=== PATIENT | male | born 1945 | race Caucasian/White ===

== ENCOUNTER 2020-07-21 16:01 | Emergency (ER) | payer OTHER, MEDICARE ==
--- NOTE | 2020-07-21 16:35 | EDM.PDOC ---
ED HPI GENERAL MEDICAL PROBLEM - General Chief Complaint: Lower Extremity Injury/Pain Stated Complaint: KNEE PAIN Time Seen by Provider: 07/21/20 16:25 Source of Information: Reports: Patient, RN, RN Notes Reviewed History Limitations: Reports: No Limitations - History of Present Illness INITIAL COMMENTS - FREE TEXT/NARRATIVE: Nik is a 75 y/o male who presents to the ED via personal vehicle for complaints of left knee pain. The patient reports he has experienced pain to this extremity for approximately two months. He has been [facility] and finished a 15-day PT treatment about two weeks ago. He noticed an increase to the pain in his left anteromedial knee a few days after finishing PT which has progressively worsened over the past two days. The patient denies history or recent injury to this extremity, but does note he was lifting and hauling 60lbs bags of dirt at work about three days ago. He reports the pain is the worst when he is completely bearing weight on this extremity while he is walking. - Related Data Allergies Allergy/AdvReac Type Severity Reaction Status Date / Time No Known Allergies Allergy Verified 07/21/20 16:18 Home Meds: Home Meds . [No Known Home Meds] 07/21/20 [History] Past Medical History Respiratory History: Reports: Asthma Social & Family History - Family History Family Medical History: No Pertinent Family History - Tobacco Use Tobacco Use Status *Q: Never Tobacco User - Caffeine Use Caffeine Use: Reports: Coffee - Recreational Drug Use Recreational Drug Use: No Review of Systems - Review of Systems Review Of Systems: Comprehensive ROS is negative, except as noted in HPI. ED EXAM, GENERAL - Physical Exam Exam: See Below Exam Limited By: No Limitations General Appearance: Alert, No Apparent Distress Throat/Mouth: Normal Inspection, Normal Oropharynx, Normal Voice, No Airway Compromise Head: Atraumatic, Normocephalic Respiratory/Chest: No Respiratory Distress, Lungs Clear, Normal Breath Sounds, No Accessory Muscle Use, Chest Non-Tender Cardiovascular: Normal Peripheral Pulses, Regular Rate, Rhythm, No Edema, No Gallop, No JVD, No Murmur, No Rub Peripheral Pulses: 1+: Posterior Tibial (L), Posterior Tibial (R), 2+: Radial (L), Radial (R), Dorsalis Pedis (L), Dorsalis Pedis (R) GI/Abdominal: Normal Bowel Sounds, Soft, Non-Tender, No Distention, No Mass, Pelvis Stable (Male) Exam: Deferred Rectal (Males) Exam: Deferred Back Exam: Normal Inspection, Full Range of Motion Extremities: No Pedal Edema, Normal Capillary Refill, Leg Pain, Limited Range of Motion (To bilateral knees), Other (Compression brace in place to right knee). No: Joint Swelling, Increased Warmth, Mottled, Pallor, Redness Neurological: Alert, Oriented, CN II-XII Intact, Normal Cognition, Normal Gait, No Motor/Sensory Deficits Psychiatric: Normal Affect, Normal Mood Skin Exam: Warm, Dry, Intact, Normal Color, No Rash. No: Ecchymosis, Erythema, Jaundice, Mottled, Pallor, Petechiae Course - Vital Signs Last Recorded V/S: Last Vital Signs Temp 98.5 F 07/21/20 16:23 Pulse 84 07/21/20 16:23 Resp 16 07/21/20 16:23 BP 133/84 07/21/20 16:23 Pulse Ox 100 07/21/20 16:23 - Orders/Labs/Meds Meds: Medications Discontinued Medications Generic Name Dose Route Start Last Admin Trade Name Freq PRN Reason Stop Dose Admin Tramadol HCl 50 mg 07/21/20 16:40 07/21/20 16:50 Tramadol 50 Mg Tab PO 07/21/20 16:41 50 mg ONETIME ONE Administration - Re-Assessments/Exams Free Text/Narrative Re-Assessment/Exam: 07/21/20 Given longstanding history of knee pain with no injury, will refrain from imaging at this time. Drawer test negative. Vargus stress negative, valgus stress produces painful response. Discussed likely need for outpatient MRI for evaluation of ligaments. Patient reports he has compression sleeve fore this knee at home. Reviewed supportive cares for knee pain at home. Will treat acute pain with tramadol. Patient to follow up with primary care provider tomorrow morning to set up MRI and appropriate referrals. Patient verbalized understanding and agreement with the plan of care. Departure - Departure Time of Disposition: 16:43 Disposition: Home, Self-Care 01 Condition: Good Clinical Impression: Left medial knee pain, Chronic pain of left knee - Discharge Information *PRESCRIPTION DRUG MONITORING PROGRAM REVIEWED*: Not Applicable *COPY OF PRESCRIPTION DRUG MONITORING REPORT IN PATIENT IRASEMA: Not Applicable Referrals: PCP,None [Primary Care Provider] - Forms: ED Department Discharge Additional Instructions: Rx: tramadol 1.) Follow up with your primary care provider tomorrow to schedule outpatient MRI. 2.) Continue with compression wrap to knee for comfort. 3.) You may alternate heat and ice to the affected area; 20 minutes, every hour as pain persist. 4.) You may try BioFreeze to the affected area, as pain persists. Sepsis Event Note (ED) - Evaluation Sepsis Screening Result: No Definite Risk
[2020-07-21] MEDS ORDERED: traMADol 50 MG Tab PO ONE (16:40)
== END 2020-07-21 17:01 | disposition home or self-care (01) ==
LOC: DL.ED 16:01
DX: M25.562 Pain in left knee (principal); G89.29 Other chronic pain; J45.909 Unspecified asthma, uncomplicated
CPT/HCPCS: 99283; A9270-GY

== ENCOUNTER 2024-04-30 06:38 | Day surgery (SDC) | payer OTHER ==
[2024-04-30] MEDS ORDERED: Dexamethasone 4 MG/ML SDV IV ONE (06:39)
[2024-04-30] MEDS ORDERED: Sodium Chloride 0.9% 10 ML Syringe IV ONE (06:39)
[2024-04-30] MEDS ORDERED: Midazolam 1 MG/ML 2 ML SDV IV ONE (06:39)
[2024-04-30] MEDS ORDERED: Acetaminophen/Codeine 300-30 MG Tab PO PRN (07:00)
[2024-04-30] MEDS ORDERED: Sodium Chloride 0.9% 10 ML Syringe FLUSH PRN (07:00)
[2024-04-30] MEDS ORDERED: Acetaminophen 325 MG Tab PO PRN (07:00)
[2024-04-30] MEDS ORDERED: Ondansetron 4 MG/2 ML SDV IVPUSH PRN (07:00)
[2024-04-30] MEDS: Proparacaine 0.5% Ophth Soln 15 ML Bottle EYELF ONE ×2 (07:14→08:46)
[2024-04-30] MEDS: Povidone-Iodine 5% Sterile Ophth Soln 30 ML Bottle EYELF ONE ×2 (07:16→08:46)
[2024-04-30] MEDS: Moxifloxacin 0.5% Ophth Soln 3 ML Bottle EYELF ONE (07:17)
[2024-04-30] MEDS: Tropicamide 1% Ophth Soln 15 ML Bottle EYELF ONE (07:18)
[2024-04-30] MEDS: Phenylephrine 10% Ophth Soln 5 ML Bot EYELF ONE (07:19)
[2024-04-30] MEDS: Timolol Maleate 0.5% Ophth Soln 5 ML Bottle EYELF ONE (07:20)
[2024-04-30] MEDS: Cataract Ophth Solution EYELF ONE (07:21)
[2024-04-30] MEDS: Lidocaine 1% 30 ML SDV INJECT ONE (08:46)
[2024-04-30] MEDS: VANCOmycin 500 MG SDV EYELF ONE (08:46)
[2024-04-30] MEDS: Diclofenac Sodium 0.1% Ophth Soln 5 ML Bottle EYELF ONE (09:00)
[2024-04-30] MEDS: Apraclonidine 0.5% Ophth Soln 5 ML Bot EYELF ONE (09:00)
[2024-04-30] MEDS: Dexamethasone/Neomycin/Polymyxin B Ophth Oint 3.5 GM Tube EYELF ONE (09:00)
== END 2024-04-30 09:43 | disposition home or self-care (01) ==
LOC: DL.SDS 06:38
PROVIDERS: ATTEND Ophthalmology
DX: H25.812 Combined forms of age-related cataract, left eye (principal); I10 Essential (primary) hypertension; J45.909 Unspecified asthma, uncomplicated; Z79.899 Other long term (current) drug therapy
CPT/HCPCS: 66984; A9270; J3370; J1100; J2250; J3490

== ENCOUNTER 2024-05-14 06:31 | Day surgery (SDC) | payer OTHER ==
[2024-05-14] MEDS ORDERED: Acetaminophen 325 MG Tab PO PRN (07:00)
[2024-05-14] MEDS ORDERED: Acetaminophen/Codeine 300-30 MG Tab PO PRN (07:00)
[2024-05-14] MEDS ORDERED: Ondansetron 4 MG/2 ML SDV IVPUSH PRN (07:00)
[2024-05-14] MEDS ORDERED: Sodium Chloride 0.9% 10 ML Syringe FLUSH PRN (07:00)
[2024-05-14] MEDS: Povidone-Iodine 5% Sterile Ophth Soln 30 ML Bottle EYERT ONE ×2 (07:20→08:10)
[2024-05-14] MEDS: Proparacaine 0.5% Ophth Soln 15 ML Bottle EYERT ONE ×2 (07:22→08:09)
[2024-05-14] MEDS: Moxifloxacin 0.5% Ophth Soln 3 ML Bottle EYERT ONE (07:23)
[2024-05-14] MEDS: Tropicamide 1% Ophth Soln 15 ML Bottle EYERT ONE (07:24)
[2024-05-14] MEDS: Phenylephrine 10% Ophth Soln 5 ML Bot EYERT ONE (07:25)
[2024-05-14] MEDS: Timolol Maleate 0.5% Ophth Soln 5 ML Bottle EYERT ONE (07:26)
[2024-05-14] MEDS: Cataract Ophth Solution EYERT ONE (07:27)
[2024-05-14] MEDS: Apraclonidine 0.5% Ophth Soln 5 ML Bot EYERT ONE (08:10)
[2024-05-14] MEDS: Diclofenac Sodium 0.1% Ophth Soln 5 ML Bottle EYERT ONE (08:11)
[2024-05-14] MEDS: Dexamethasone/Neomycin/Polymyxin B Ophth Oint 3.5 GM Tube EYERT ONE (08:11)
[2024-05-14] MEDS: VANCOmycin 500 MG SDV EYERT ONE (08:12)
[2024-05-14] MEDS: Lidocaine 1% 30 ML SDV ONE (08:12)
== END 2024-05-14 09:04 | disposition home or self-care (01) ==
LOC: DL.SDS 06:31
PROVIDERS: ATTEND Ophthalmology
DX: H25.811 Combined forms of age-related cataract, right eye (principal); E66.9 Obesity, unspecified; Z79.899 Other long term (current) drug therapy
CPT/HCPCS: 66984; A9270; J3370; J3490